=== PATIENT | female | born 1950 | race Caucasian/White ===

== ENCOUNTER 2016-06-29 09:18 | Emergency (ER) | payer OTHER ==
[~2016-06-29] VITALS: Ht 175.3 cm; Wt 86.2 kg
[2016-06-29 09:21] VITALS: BP 130/68
[2016-06-29] MEDS ORDERED: TDAP [DIPH/PERTUSSIS/TET] 0.5 ML VIAL IM ONE ×2 (09:40→10:00)
== END 2016-06-29 09:53 | disposition home or self-care (01) ==
LOC: ER 09:20
DX: S61.432A Puncture wound without foreign body of left hand, initial encounter (principal); S61.431A Puncture wound without foreign body of right hand, initial encounter; E03.9 Hypothyroidism, unspecified; W18.31XA Fall on same level due to stepping on an object, initial encounter; Y93.89 Activity, other specified; Y92.89 Other specified places as the place of occurrence of the external cause; Y99.8 Other external cause status
CPT/HCPCS: 90471; 90715; 99283; A4606; Z7610